=== PATIENT | male | born 1965 | race Caucasian/White ===

== ENCOUNTER → 2018-12-27 14:24 | Outpatient (CLI) | payer OTHER, SELFPAY ==
--- NOTE | 2018-12-27 14:31 | RAD_ITS ---
STUDY: X-RAY - LEFT SHOULDER REASON FOR EXAM: Chronic shoulder pain since fall. TECHNIQUE: 3 view(s) of the shoulder. COMPARISON: None. FINDINGS: Normal glenohumeral articulation. There is no substantial acromioclavicular arthrosis. Normal acromion. Normal humeral head and visualized proximal humerus. The soft tissue structures are unremarkable. Normal visualized pulmonary apex. RAD/Shoulder min 2 Views IMPRESSION: Unremarkable x-ray examination of the left shoulder. Electronically Signed: Vincent Dominguez MD at 13:42 EST Tel , Service support ,
== END ==
LOC: HPRAD 14:26
PROVIDERS: Family Provider Family Medicine; PCP Family Medicine; Referring Provider Physician Assistant; Visit Provider Physician Assistant
DX: M25.512 Pain in left shoulder (principal)
CPT/HCPCS: 73030

== ENCOUNTER → 2019-01-21 15:56 | Outpatient (CLI) | payer OTHER, SELFPAY ==
--- NOTE | 2019-01-21 15:58 | MRI_ITS ---
STUDY: MRI LEFT SHOULDER MRI LEFT SHOULDER: REASON FOR EXAM: Male, 53 years old. Left shoulder pain, decreased range of motion TECHNIQUE: Standardized fat and water weighted pulse sequences were obtained in all 3 orthogonal planes. COMPARISON: None. FINDINGS: There is a superior inferior tear of the supraspinatus tendon. There may be a few fibers still intact. There is increased T2 signal within the infraspinatus tendon without retraction. There is no significant retraction of the supraspinatus tendon. There is a small articular surface defect measuring approximately 7 mm.. There is irregularity of the subscapularis tendon with increased T2 signal along its course. There is edema with fluid along the anterior margin of the glenoid. There is significant AC joint osteoarthrosis with osteophytes of the distal clavicle and adjacent acromial osteophytes with subchondral geodes and small amount of fluid within the AC joint. There are inferior spurs with significant compression on the supraspinatus muscle and tendon. Normal glenohumeral articulation. There may be a small Bankart lesion of the humeral head.. The bicipital tendon is likely intact. There is irregularity and deformity of the anterior superior labrum. . Normal deltoid muscle. Normal trapezius muscle. MRI/Upper Ext Joint Only(Routine) IMPRESSION: Superior-inferior tear of the supraspinatus tendon with possible few fibers still intact, there is no significant retraction. Tendinosis infraspinatus tendon Significant AC joint osteoarthrosis with impingement upon the supraspinatus muscle and tendon Likely ALPSA lesion with likely periosteal sleeve injury, anterior superior labral tear, likely tear of the subscapularis tendon Possible small Bankart lesion of the humeral head Electronically Signed: Woodrow Mejia, at 0:08 EST Tel , Service support ,
== END ==
PROVIDERS: Family Provider Family Medicine; PCP Family Medicine; Referring Provider Physician Assistant; Visit Provider Physician Assistant
DX: M75.122 Complete rotator cuff tear or rupture of left shoulder, not specified as traumatic (principal)
CPT/HCPCS: 73221

== ENCOUNTER → 2019-02-26 15:45 | Outpatient (CLI) | payer OTHER, SELFPAY ==
--- NOTE | 2019-02-26 15:47 | CT_ITS ---
STUDY: CT MAXILLOFACIAL SINUSES REASON FOR EXAM: Male, 53 years old. Chronic sinusitis, fracture and deviated septum. RADIATION DOSAGE (If Supplied By Facility): CTDIvol = ( 33.45 ) mGy, DLP = ( 797.27 ) mGycm TECHNIQUE: The patient was scanned in a multi detector CT scanner. High resolution axial imaging was performed without the administration of intravenous contrast material. Sagittal and coronal images were reconstructed. Individualized dose optimization techniques were used for this CT. COMPARISON: None. FINDINGS: FRONTAL SINUSES: Mildly comparison thickening at the base of the frontal sinuses bilaterally. ETHMOIDAL SINUSES: Mild to moderate multifocal the comparison study of thickening involving the right and left ethmoid sinuses. MAXILLARY SINUSES: Mild bilateral mucoperiosteal thickening, of greater thickness at the bases of the maxillary sinuses. SPHENOIDAL SINUSES: Clear. Leftward bowing and spurring of the nasal septum. Right superior turbinate dillon bullosa. Clear nasal passages. Partial obstruction of the right osteal metal complex. Mastoid air cells and middle ear cavities clear. Craniofacial osseous structures normal. Extra cranial soft tissues including orbital contents exhibit no acute process. A few shotty cervical lymph nodes bilaterally none pathologically enlarged. No acute intracranial process, in limited evaluation. CT/Sinus/Facial Bone IMPRESSION: Chronic paranasal sinus disease. Electronically Signed: Ric Bucio MD at 11:59 EDT Tel , Service support ,
== END ==
LOC: CT 15:46
PROVIDERS: Family Provider Family Medicine; PCP Family Medicine; Referring Provider Otolaryngology; Visit Provider Otolaryngology
DX: J32.9 Chronic sinusitis, unspecified (principal)
CPT/HCPCS: 70486

== ENCOUNTER → 2019-07-04 16:46 | Outpatient (CLI) | payer OTHER, SELFPAY ==
--- NOTE | 2019-07-04 17:00 | EKG12_ITS ---
Test Reason : Blood Pressure : / mmHG Vent. Rate : 083 BPM Atrial Rate : 083 BPM P-R Int : 168 ms QRS Dur : 094 ms QT Int : 356 ms P-R-T Axes : 055 -16 039 degrees QTc Int : 418 ms Normal sinus rhythm Normal ECG Confirmed by ALEXANDER ORTIZ, CHRISTINE ([id number]), society editor DIANNE BEDOLLA ([id number]) on 07/05/2019 9:00:15 AM Referred By: Dragan Angulo Confirmed By:CHRISTINE MUNOZ MD
[2019-07-04 17:15] LABS: Hematocrit 42.6 % (40-54); Hemoglobin 14.6 g/dL (13.0-16.5); Mean Corp Hgb Conc 34.3 g/dL (32-36); Mean Corpuscular Hgb 32.5 pg (27.0-32.0); Mean Corpuscular Volume 94.9 fL (80-94); Mean Platelet Vol. 10.5 fl (6.2-12.0); Platelet Count 163 K/mm3 (150-450); RBC Distribution Width CV 12.8 % (11.6-14.6); RBC Distribution Width SD 43.8 fl (35.1-43.9); Red Blood Count 4.49 M/mm3 (4.6-6.2); White Blood Count 6.6 K/mm3 (4.4-11.0)
[2019-07-04 18:02] LABS: Anion Gap 8 (5-15); BUN 11 mg/dL (7-18); BUN/Creat Ratio 13.3 RATIO (10-20); Calcium,Total 8.9 mg/dL (8.5-10.1); Chloride 103 mmol/L (98-107); Creatinine, Serum 0.82 mg/dL (0.70-1.30); EST Glomerular Filtration Rate 104 mL/min (>60); Est Glom Filt Rate - Afr Amer 125 mL/min (>60); Glucose 120 mg/dL (74-106); Potassium 3.5 mmol/L (3.5-5.1); Sodium Level 139 mmol/L (136-145)
== END ==
LOC: LAB 16:47
PROVIDERS: Family Provider Family Medicine; PCP Family Medicine; Referring Provider Otolaryngology; Visit Provider Otolaryngology
DX: Z98.890 Other specified postprocedural states (principal)
CPT/HCPCS: 36415; 80048; 85027; 93005

== ENCOUNTER → 2019-07-08 15:50 | Outpatient (CLI) | payer OTHER, SELFPAY ==
--- NOTE | 2019-07-08 10:30 | ETH_PTH ---
PATIENT: NEIL JAMIL LOC: [facility] U#:[id number] AGE/SX: 60/M ROOM: RE07/08/[address]: Dr. Dragan Angulo MD : 1965 BED: DIS: SPEC #: [id number] RECD: 07/08/19 15:10 STATUS: JIMBO MICHAEL #: [id number] GINGER: 07/08/19 10:[address]: Dragan Angulo DEPT: SURGICAL PATHOLOGY RECD BY: Ton Drummond ENTERED: 07/09/19 08:57 SP TYPE: ETH TISS OTHR DR: Dr. Devonte Castano MD [facility] Tissues: A - Ethmoid sinus, NOS B - Ethmoid sinus, NOS C - Nasal septum, NOS Procedures: Decalcification bone/plaque Surgery Specimen Level III Surgery Specimen Level IV HEADER OPERATION: Septoplasty, right partial middle turbinectomy; bilateral maxillary antrostomy, bilateral total ethmoidectomy PRE-OP DIAGNOSIS: Nasal congestion; hypertrophy of nasal turbinates; deviated nasal septum; chronic sinusitis TISSUE SUBMITTED: A - Right sinus contents, B - Left sinus contents, C - Septum MICROSCOPIC DIAGNOSIS A. Right sinus contents: Fragments of respiratory mucosa with acute and chronic inflammation, squamous metaplasia and bone. B. Left sinus contents: Fragments of respiratory mucosa with chronic inflammation and bone. C. Septum: Fragments of cartilage and bone, clinically deviated nasal septum. SJ:jam 07/12/19 MICROSCOPIC DESCRIPTION Slides are reviewed. GROSS DESCRIPTION A - Received in fixative is one container labeled with the patient's name and designated right sinus contents. The specimen consists of multiple irregular, foamy and gritty fragments of light to dark frost soft tissue that in aggregate measure 5 x 3 x 0.2 cm. Optical Instrument Assembly Supervisor portions are submitted in two cassettes. B - Received in fixative is one container labeled with the patient's name and designated left sinus contents. The specimen consists of multiple irregular, foamy and gritty fragments of light to dark frost soft tissue that in aggregate measure 2.5 x 1.5 x 0.2 cm. The specimen is submitted in its entirety in one cassette. C - Received in fixative is one container labeled with the patient's name and designated septum. The specimen consists of multiple irregular fragments of light frost bone and cartilage that in aggregate measure 3 x 2.5 x 0.2 cm. The specimen is totally submitted in one cassette after decalcification. / AM:jam 07/09/19 TC:3 CPT: 87783 x2, 44937, 90220
== END ==
PROVIDERS: Family Provider Family Medicine; PCP Family Medicine; Referring Provider Otolaryngology; Visit Provider Otolaryngology
DX: J32.9 Chronic sinusitis, unspecified (principal); J34.2 Deviated nasal septum
CPT/HCPCS: 88304; 88305; 88311

== ENCOUNTER 2019-08-14 06:01 | Day surgery (SDC) | payer OTHER, SELFPAY ==
[2019-08-08 17:28] LABS: International Normalized Ratio 0.9; Partial Thromboplast Time 25.8 Seconds (24.1-36.2); Prothrombin Time (Protime)PT. 12.2 SECONDS (11.7-14.9)
[2019-08-08 18:08] LABS: AST(SGOT) 25 U/L (15-37); Alanine Aminotransfer ALT/SGPT 39 U/L (16-61); Albumin, Serum 3.6 g/dL (3.2-5.0); Alkaline Phosphatase 104 U/L (45-117); Globulin 3.3 g/dL (2.2-4.2); Protein, Total 6.9 g/dL (6.4-8.2)
[2019-08-08 19:00] LABS: Hemoglobin A1c 7.5 % (4.2-6.3)
[2019-08-14] VITALS (7 sets, daily range): BP systolic 133–167; BP diastolic 73–91; PULSE 80–94; RESP 16–20; TEMP 36–37; O2SAT 94–98; BMI 28.3
[2019-08-14 06:35] LABS: Bedside Glucose 229 mg/dL (70-110)
[2019-08-14] MEDS: Lactated Ringers 1,000 ML 100 ML IV ×2 (06:42→10:06)
[2019-08-14] MEDS: Cefazolin 2 GM in 0.9% Normal Saline 100 ML IV (07:27)
--- NOTE | 2019-08-14 07:30 | TESH_PTH ---
PATIENT: NEIL JAMIL LOC: [facility] U#:[id number] AGE/SX: 54/M ROOM: RE08/14/[address]: Dr. Chasity Posey DO : 1965 BED: DIS: 08/14/2019 SPEC #: [id number] RECD: 08/14/19 11:55 STATUS: JIMBO MICHAEL #: [id number] GINGER: 08/14/19 07:[address]: Chasity Posey DEPT: SURGICAL PATHOLOGY RECD BY: Florina Pennington ENTERED: 08/14/19 12:04 SP TYPE: TENDON OTHR DR: Dr. Devonte Castano MD Tissues: Tendon and tendon sheath, NOS Procedures: Surgery Specimen Level III HEADER OPERATION: Shoulder subacromial decompression/acromioplasty PRE-OP DIAGNOSIS: Complete tear of left rotator cuff TISSUE SUBMITTED: Left biceps tendon MICROSCOPIC DIAGNOSIS Left biceps tendon: A piece of dense fibroconnective tissue with reactive changes. AM:jam 08/15/19 MICROSCOPIC DESCRIPTION Slides are reviewed. GROSS DESCRIPTION Received in fixative is one container labeled with the patient's name and designated left biceps tendon. The specimen consists of an elongated fragment of light frost-white tendinous tissue measuring 5 cm in length and 0.8 cm in diameter. The specimen is totally submitted in one cassette. / AM:jam 08/14/19 TC:5 CPT: 97142
--- NOTE | 2019-08-14 07:38 | DCINST_ITS ---
Discharge Diet: No Restrictions - sling at all times unless showering, may remove dressings and get incision wet pod 4, keep incision clean and dry until then, call with concerns Discharge Activity: May Not Drive May shower in (days): 1 Ice area for (Minutes): 20 - Every hour while awake. Weight Bearing Status: Weight bearing as tolerated Keep extremity elevated above heart level: Operative Extremity Call your doctor if your incision/area has: Continuous Slow Oozing, Sudden Increased Bleeding, Increased Pain/ Swelling, Increased Redness, Foul Smelling Discharge Call your doctor if you observe: Fever of 101 or Higher, Coldness, Increased Pain, Numbness or Tingling, Change in Color, Calf discomfort Allergies/Adverse Reactions: Allergies No Known Allergies Allergy (Verified 08/14/19 06:33) Medications to take at Discharge Lansoprazole [Prevacid] 30 mg PO DAILY 03/09/15 Lisinopril/Hydrochlorothiazide [Zestoretic 20/25 Tablet] 1 tab PO DAILY 03/09/15 cyanocobalamin (vitamin B-12) 1,000 mcg capsule 1,000 mcg PO DAILY 07/25/19 magnesium oxide 500 mg capsule 500 mg PO DAILY 07/25/19 metformin 500 mg tablet 500 mg PO DAILY #90 tab 07/25/19 Oxycodone HCl/Acetaminophen [Percocet 5/325] 1 - 2 tablet PO Q6H PRN PRN 5 Days #28 tablet 08/14/19 The following prescriptions were given: Oxycodone HCl/Acetaminophen [Percocet 5/325] 1 - 2 tablet PO Q6H PRN PRN 5 Days #28 tablet PRN Reason: Pain Transmission Status: Sent to [facility] Primary Care Physician: Devonte Castano MD [Primary Care Provider] - Test Results: Test results from this visit will be discussed in further detail at your follow- up appointment, if applicable. Please Follow Up With: Chasity Posey, DO - [phone]
--- NOTE | 2019-08-14 07:39 | OP.PCM_ITS ---
Report of Operation Date of Procedure: 08/14/19 Pre-Operative Diagnosis: left shoulder rotator cuff tear, biceps tendinosis, subacromial impingement, Post-Operative Diagnosis: same Surgery/Procedure Performed:: sals, rotator cuff repair, distal clavicle excision, subacromial decompression, open subpec biceps tenodesis ssis architect: Santino Alvarado Type of Anesthesia:: General/Regional Anesthesiologist: Denton Jack Estimated Blood Loss (mL): minimal Fluids Replaced: 1000ml lr Description of Procedure: Preop note Patient is a 54-year-old male who has left shoulder pain and instability pain with overhead motion and tenderness along his distal clavicle. Risk benefits and alternatives were discussed with patient after an MRI was obtained. Risk benefits and risks include but not not limited to blood loss, blood clot, infection, neurovascular, failure procedure, loss of life and loss of limb. Patient is aware like proceed with left shoulder repair as indicated. Next Operative note Patient seen and examined preop holding area. Left arm was marked. Patient brought to the operating placed supine on the operating table. Signed, anesthesia, antibiotics were administered. Left arm was prepped and draped in usual sterile fashion all bony problems well-padded SCDs placed on his bilateral lower extremity. [place] through beachchair position we did recheck his blood pressure which is stable throughout. We then again prepped and draped the left arm standard technique we marked out our bony landmarks we then insufflated the glenohumeral joint from the posterior aspect had good return. We then created our posterior portal and began a diagnostic arthroscopy. The glenohumeral joint was intact. Anterior portal was created under direct visualization. The subscap was torn off its insertion on the lesser tuberosity and had a capsule attachment as well. We then released the subscap scar tissue. We used a bur at the site of the lesser tuberosity. We then place a push lock anchor after placed into fiber length and the leading edge of the subscap were able to bring it down and we construct his anterior stabilizing forces of the shoulder. The biceps was torn off of the insertion of the labrum this was released with a tenotomy. The rotator cuff was intact. We then moved to the subacromial space. Created a lateral portal under direct visualization. We then resected the hyperemic bursa which was throughout. We then complained the spur type II acromion. We then moved to the AC joint. We then created a trans-AC portal. We then debrided back with a bur first and then with a shaver and then resected about 7 mm from the distal clavicle about 2 from the acromial process. We then coplanar under the undersurface going back to the lateral portal again. We then irrigated the shoulder with copious muscle sterile saline all bleeders were coagulated. We then moved our open biceps tenodesis we created a 2 cm incision just inferior to the insertion of the pack. Dissected down tenotomies of the biceps biceps was brought out of the incision truncated at its appropriate level whipstitched the and and sent the biceps tender to pathology for further evaluation. We then use the put the Arthrex pec button in standard technique drilled unicortical he placed our button after it was placed through the the ends of the whipstitched biceps tendon we then oversewed sewed down to the periosteum with a free needle. We then irrigated the incision with copious muscle sterile saline incision closed with 3-0 Vicryl in a running 4-0 Monocryl the portals were closed with interrupted 4-0 nylon. Sterile dressings were applied. Patient tolerated procedure well no comp occasions [facility] recovery room in stable condition. Postoperative Nonweightbearing left arm Follow-up on Monday for dressing change and brace adjustment Pharmacy has hospital prescriptions Sling Call with increased pain numbness tingling further issues arise This note was generated with Optichron dictation software. It may contain incorrect words, spelling, and punctuation that were not noted in checking the note before signing. [employer] disclaimer
--- NOTE | 2019-08-14 07:40 | PCM.HP.BLA ---
History and Physical I have re-examined the patient. There are no clinical changes since date of exam. Intake Intake Visit Reasons: L. SHOULDER Accompanied by: self Is patient in pain?: Yes Pain scale (1-10): 5 Allergies No Known Allergies Allergy (Verified 11/08/16 11:33) Medications Lansoprazole [Prevacid] 15 mg PO DAILY 03/09/15 [History Confirmed 07/25/19] Lisinopril/Hydrochlorothiazide [Zestoretic 20/25 Tablet] 1 tab PO DAILY 03/09/15 [History Confirmed 07/25/19] cyanocobalamin (vitamin B-12) 1,000 mcg capsule 1,000 mcg PO DAILY 07/25/19 [History Confirmed 07/25/19] magnesium oxide 500 mg capsule 500 mg PO DAILY 07/25/19 [History Confirmed 07/25/19] metformin 500 mg tablet PO #90 tab 07/25/19 [History Confirmed 07/25/19] PFSH Social History (Updated 07/25/19 @ 15:08 by Chasity Posey DO) Smoking Status: Current some day smoker HPI L. SHOULDER: Details: Parts of this documentation were recorded by a scribe, this documentation accurately reflects the service provided and the decisions made by me, Chasity Posey DO 07/25/19 [id number]. NEIL JAMIL is a 53 year old M here today for F/U on left shoulder RTC repair. Patient had sinus surgery 6 weeks ago and was to F/U at this time to discuss left shoulder RTC repair. Denies numbness, tingling or other associated symptoms. Patient continues to have pain over his anterior shoulder. He does c/o left hand cramping occasionally. Does continue to have weakness of the left arm. ROS Const Reports system reviewed and no additional complaints, except as docu Eyes Reports system reviewed and no additional complaints, except as docu ENT Reports system reviewed and no additional complaints, except as docu Card Reports system reviewed and no additional complaints, except as docu Resp Reports system reviewed and no additional complaints, except as docu GI Reports system reviewed and no additional complaints, except as docu Reports system reviewed and no additional complaints, except as docu Musc Reports as per HPI Skin/Breast Reports system reviewed and no additional complaints, except as docu Neuro Yes system reviewed and no additional complaints, except as docu Psych Reports system reviewed and no additional complaints, except as docu Endo Reports system reviewed and no additional complaints, except as docu Raz/Lymph Reports system reviewed and no additional complaints, except as docu Aller/Immun Reports system reviewed and no additional complaints, except as docu no r/r/w no abd pain no audible bruits Ortho Exam Left Shoulder Testing: Yes Hawkin's, Yes TTP Biceps, No Apprehension Test, Yes cross arm SHOULDER: weak ER Assessment & Plan Problems 1. Complete tear of left rotator cuff, unspecified whether traumatic M75.122 Plan Explained that due to his weakness on exam and his recent surgeries are complete we can repair the RTC but he is at risk of re-tear due to the smoking and encouraged quitting. Reviewed the pre-operative plans with the patient. Risks and benefits of the procedure were fully explained, including but not limited to infection, neurovascular injury, continued pain, arthritis, stiffness, need for further surgery, re-injury, DVT, PE, general risks of anesthesia, and loss of limb or life. The patient understands all the risks and does wish to proceed with written consent. Follow up post op or sooner if pain, swelling, numbness or associated symptoms, or concerns develop. All questions answered. Patient in agreement of plan. Coding Level of Care Code Off vis,est,level 4 Diagnoses Complete tear of left rotator cuff, unspecified whether traumatic M75.122 ??Rotator cuff tear extent: complete ??Rotator cuff tear trauma status: unspecified whether traumatic
[2019-08-14] MEDS: Epinephrine (1 mg/ml) 1 MG/ML VIAL (08:00)
[2019-08-14] MEDS: Mupirocin Ointment 22gm Tube 1 APPLIC (09:37)
[2019-08-14 10:16] LABS: Bedside Glucose 208 mg/dL (70-110)
== END 2019-08-14 11:45 | disposition home or self-care (01) ==
LOC: SDC 06:02 → AC 06:02
PROVIDERS: Anesthesiology; Family Provider Family Medicine; PCP Family Medicine; Referring Provider Orthopaedic Surgery; Visit Provider Orthopaedic Surgery
PROC: (CPT 29827; principal; 2019-08-14 07:10)
DX: M75.122 Complete rotator cuff tear or rupture of left shoulder, not specified as traumatic (principal); R53.1 Weakness; E11.9 Type 2 diabetes mellitus without complications; E78.00 Pure hypercholesterolemia, unspecified; F10.20 Alcohol dependence, uncomplicated; Y90.9 Presence of alcohol in blood, level not specified; I10 Essential (primary) hypertension; Z79.84 Long term (current) use of oral hypoglycemic drugs; F17.200 Nicotine dependence, unspecified, uncomplicated
CPT/HCPCS: 01630; 29826; 29827; 29828; 64450; 36415; 80076; 82962; 83036; 85610; 85730; 88304; J7120; J2405

== ENCOUNTER 2019-10-23 16:00 | Outpatient (RCR) | payer OTHER, SELFPAY ==
[2019-08-29 10:13] VITALS: BMI 28.3
--- NOTE | 2019-09-19 13:43 | HP.PTEVAL_ITS ---
Patient's Visit Information NEIL JAMIL is a 54 year old M referred to Physical Therapy by Chasity Posey DO with a diagnosis of L SUBSCAP REPAIR, BICEPS TENODESIS 08/14. Date of Evaluation: 09/19/19 Physical Therapist: Denton Zhang, DPT, OCS, CSCS - Visit Plan Frequency: 1-2x /Week Duration: 2 Months Plan: weekly to progress HEP of AROM to strengthening to return to function ex based on his symptoms. Emphasize precautions and HEP. Next can start isometric or controlled PRE strength if motion near full and pain down. - Subjective Findings: L shoulder surgery 08/14, 5 weeks ago she fixed RC, biceps tenodesis adn cleaned him out. Prior to that was achey pain in arm after falling off a roof last August. Was 09/05 adn could not sleep at night. Since surgery has less pain, not wearing sling alot at home adn hasn't warn it in last couple months. /10 pain in L shoulder if rolls on it wrong adn if uses it when he should not. No pain at rest. 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 Sleep is OK for the most part. Normal unless he rolls on it wrong. Mechanics is a hobby and has not been able to do much of that. Soreness makes him stop. Basic ADLs are pretty normal. No exercises, still supposed to be in sling until novemeb follow up. - Pain L shoulder Pain Intensity (Out of 10): 0 Pain Intensity Range: 0, 5 - Objective Forward head posture adn anterior scapula. Incisions have healed well with slight scarring above biceps incision. No unusual redness heat or swelling. Pt in sling at arrival but admittedly has not been in it much and did not put it on to depart. Moving arm all over the place on his own despite my recommending care with movement. AROM L shoulder 120 flexion with slight end range pain, 120 abd, 68 ext rotation(vs 80 on R) and L3 IR with slight discomfort. Full elbow aROM without pain today in flexiona nd extension B. Strength not tested today in elbow or shoulder but at least 3/5 in all movements. wrist adn thumb strength is 4+ adn withotu pain B. PROM 150 flexion and abd with out much discomfort except end range. reflexes 2/3 bi and tric B. Sensation UE WNL to gross light touch. OVERALL DOING WELL DESPITE NONCOMPLIANCE WITH SLING AND OVERUSE OF L UE. CAUTIONED HIM TODAY REGARDING USING L UE FOR ANYTHING OTHER THAN AROM IN PAINFREE ROM BUT COMPLIANCE WILL BE QUESTIONABLE. ALSO TO BE IN SLING. - Goals Goal 1:: Full AROM without pain to 150 flexion/abduction Goal Time Frame: 4-6 Weeks Goal 2:: Strength tested at 4+/5 without pain to IR and ER and flexion of L shoulder to facilitate appropriate work Goal Time Frame: 8-12 Weeks Goal 3:: Pt I appropriate HEP to get back to normal L shoulder Goal Time Frame: 6-8 Weeks Goal 4:: Pt feel 90% back to normal in L shoulder and have plan to return to full work duty Goal Time Frame: 6-8 Weeks Goal 5:: Score<15 on quick DASH Goal Time Frame: 6-8 Weeks - Rehabilitation Potential Physical Therapy Diagnosis: s/p l subscap repair and biceps tenodesis 08/14 Rehabilitation Potential: Good - Anticipated Interventions Patient/Client Instruction: Educate patient on: Condition, Plan of Care, Risk Factors For the Purpose of:: To increase ROM, To increase tolerance to activity/condition/position, To reduce risk of recurrence Therapeutic Exercise to Include: Strength training, Postural training, Passive ROM, Active ROM Comment: work progression For the Purpose of:: To decrease pain, To increase ROM, To improve muscle performance and motor function, To improve ability of physical actions for home/community/work/leisure Thank you for the opportunity to evaluate your patient. For Medicare and Medicare HMO plans, please review the plan of care and approve it. It will need to be FAXED BACK to us at [phone] for Medicare purposes. For Medicare only, by signing this I certify the plan of care. Please let me know if there are questions or concerns regarding this plan of care. Physician Signature: Date:
--- NOTE | 2019-10-03 16:21 | HP.PTREVAL ---
Chasity Posey, DO, It has been my pleasure to treat NEIL JAMIL over the last 3 visits for L SUBSCAP REPAIR, BICEPS TENODESIS 08/14. Please see the progress note below for an update on the physical therapy plan of care! Subjective: Sore due to going back to work yesterday...lots of repetitive movements. Just sore form extra work, no problems. Doing every other day 3x10. Doctor said he coyuld go back to work despite having to lift 1/2 to 5# objects out in front of him repetitively. Is avoiding some things at work overhead. Does nto feel like shoulder pain is an issue, just getting back to work makes him sore. Objective/Function: AROM is full to 150 flexion adn abduction but painful arc and slow at end range. external and internal rotation full and just some soreness at end range. Plan Plan: no progression this week due to soreness from return to work. I cautioned him that he is really putting more stress through it than I would like but he has to do it and doctor knows about it. Will try to progress band strength next week if soreness has come back down. Goals Goal 1:: Full AROM without pain to 150 flexion/abduction Goal Time Frame: 4-6 Weeks Goal 2:: Strength tested at 4+/5 without pain to IR and ER and flexion of L shoulder to facilitate appropriate work Goal Time Frame: 8-12 Weeks Goal 3:: Pt I appropriate HEP to get back to normal L shoulder Goal Time Frame: 6-8 Weeks Goal 4:: Pt feel 90% back to normal in L shoulder and have plan to return to full work duty Goal Time Frame: 6-8 Weeks Goal 5:: Score<15 on quick DASH Goal Time Frame: 6-8 Weeks Anticipated Interventions Patient/Client Instruction: Educate patient on: Condition, Plan of Care, Risk Factors For the Purpose of:: To increase ROM, To increase tolerance to activity/condition/position, To reduce risk of recurrence Therapeutic Exercise to Include: Strength training, Postural training, Passive ROM, Active ROM Comment: work progression For the Purpose of:: To decrease pain, To increase ROM, To improve muscle performance and motor function, To improve ability of physical actions for home/community/work/leisure Please do not hesitate to contact me at [phone] by phone or if you have questions or concerns regarding this new plan of care! Sincerely, Denton Zhang, DPT, OCS, CSCS
--- NOTE | 2019-12-05 09:41 | HP.PT.NRP ---
HP - Discharge Summary (1) - Patient Information NEIL JAMIL was seen in my office for initial evaluation on 09/19/19. The following Plan of Care was established for this patient: Initial Frequency: 1-2x /Week Initial Duration: 2 Months - Anticipated Interventions Patient/Client Instruction: Educate patient on: Condition, Plan of Care, Risk Factors For the Purpose of:: To increase ROM, To increase tolerance to activity/condition/position, To reduce risk of recurrence Therapeutic Exercise to Include: Strength training, Postural training, Passive ROM, Active ROM For the Purpose of:: To decrease pain, To increase ROM, To improve muscle performance and motor function, To improve ability of physical actions for home/community/work/leisure This patient was last seen in our office 10/23/19. Pertinent comments regarding their Physical therapy will appear below: Pt seen 5 visits for progression of home rehabilitation exercises. This was to continue until back to normal but pateint has neglected to schedule or attend further visits. it should be noted that he was back to work and reportedly doing rather well ahead of where I would expect him to be when I last saw him but not overly compliant with home precautions. At this point I will be discontinuing this patient from physical therapy. I would be happy to see this patient again in the future if found appropriate by the physician. Thank you! Denton Zhang, DPT, OCS, CSCS
== END 2019-10-23 19:00 | disposition home or self-care (01) ==
LOC: PT 16:00
PROVIDERS: Family Provider Family Medicine; PCP Family Medicine; Referring Provider Orthopaedic Surgery; Visit Provider Orthopaedic Surgery
DX: Z47.89 Encounter for other orthopedic aftercare (principal); Z98.890 Other specified postprocedural states
CPT/HCPCS: 97110; 97161; 97530

== ENCOUNTER 2020-08-27 11:04 | Emergency (ER) | payer OTHER, SELFPAY ==
[2019-08-29 10:13] VITALS: BMI 28.3
[2020-08-27 11:05] VITALS: BP 154/84; PULSE 113; RESP 18; TEMP 36.4; O2SAT 97; BMI 29.8
[2020-08-27] MEDS: Ibuprofen 400 MG Tablet 800 MG PO (11:48)
--- NOTE | 2020-08-27 11:50 | RAD_ITS ---
STUDY: X-RAY - RIGHT SHOULDER REASON FOR EXAM: Male, 55 years old. FELL LAST NIGHT ON RIGHT SHOULDER. HX OF SURGERY TO SHOULDER ABOUT 4 YEARS AGO PER PATIENT. TECHNIQUE: 4 view(s) of the shoulder. COMPARISON: None. FINDINGS: Normal glenohumeral articulation. Normal acromioclavicular joint. Normal acromion. Normal humeral head and visualized proximal humerus. Metallic anchors are seen in the humeral head suggestive of prior rotator cuff surgery. The soft tissue structures are unremarkable. Normal visualized pulmonary apex. RAD/Shoulder min 2 Views IMPRESSION: No acute abnormality is seen. Electronically Signed: Van De Los Santos, at 12:05 EDT , Service support ,
--- NOTE | 2020-08-27 12:17 | ED.DCSUM_ITS ---
- ER Visit Summary Date of Service: 08/27/20 Chief Complaint: Right shoulder pain History of Present Illness: The patient is a [address] Checo Eid and Dr. Posey. He is had surgery on both shoulders by Dr. Posey. Reports that yesterday he tripped over his dog cable and injured his right shoulder. Complains of a dull pain is 1010 at worst 9-10 currently. Is worsened by movement relieved by rest. Denies any numbness or weakness. Patient denies any other injuries. No blow to the head or loss of consciousness. No neck, back, wrist, or hip pain. Physical Examination: Vitals: Stable. Afebrile. Neck: No vertebral tenderness. Full ROM without difficulty. Cleared by NEXUS criteria. Back: No vertebral tenderness. General: A&O x 3. NAD. Cardiovascular exam: Regular rate and rhythm, no murmur, rub or gallop. Respiratory exam: Chest nontender. No crepitus. Clear to auscultation bilaterally. No wheezes or stridor. Abdominal exam: Soft, nontender, nondistended, normal bowel sounds. No pain in RUQ or LUQ specifically. No peritoneal signs. Extremity: Moderate tenderness palpation over the right deltoid. No pain over the clavicle. He has decreased range of motion secondary to pain with active greater than passive abduction. He is neuro vas intact distal sensation light touch less than 2-second cap refill. Test Results: Clinical Impression(s) from Imaging Studies Shoulder X-Ray 08/27/20 11:50 IMPRESSION: No acute abnormality is seen. Electronically Signed: Van De Los Santos, at 12:05 EDT , Service support , Emergency Department Course and Treatment: Patient was treated with ibuprofen as he drove here. He was placed in a sling. Treatment Plan: Patient will be discharged with Barnhart. Instructed to follow-up with Dr. Posey in 1 week if not improving. Return to the emergency department for any worsening symptoms. Disposition: To home in improved and stable condition. Impression: 1. Right shoulder pain, acute. This note was generated with [employer] software. It may contain incorrect words, spelling, and punctuation that were not noted in review of the chart prior to signing ED Disposition - Plan for ED Patient: Instructions: ED Shoulder Pain Uncertain Cause Prescriptions: Hydrocodone Bitart/Apap 5-325 [Barnhart 5MG-325MG] 1 tablet PO Q4H PRN PRN 2 Days #10 tablet PRN Reason: Pain Referrals: Chasity Posey DO [STAFF PHYSICIAN] - 1 Week if not improving
[2020-08-27 12:40] VITALS: PULSE 99; RESP 17; O2SAT 96
== END 2020-08-27 12:42 | disposition home or self-care (01) ==
LOC: ED 12:21
PROVIDERS: Emergency Provider Emergency Medicine; PCP Family Medicine
DX: M25.511 Pain in right shoulder (principal); I10 Essential (primary) hypertension; E11.9 Type 2 diabetes mellitus without complications; Z79.84 Long term (current) use of oral hypoglycemic drugs
CPT/HCPCS: 73030; 99283

== ENCOUNTER → 2020-09-10 15:37 | Outpatient (CLI) | payer OTHER, SELFPAY ==
[2020-09-01 14:57] VITALS: BMI 29.8
--- NOTE | 2020-09-10 15:40 | MRI_ITS ---
STUDY: MRI RIGHT SHOULDER REASON FOR EXAM: Male, 55 years old. rt shoulder pain, fall, limited r.o.m TECHNIQUE: Standardized fat and water weighted pulse sequences were obtained in all 3 orthogonal planes. COMPARISON: X-ray 08/27/2020 FINDINGS: Status post rotator cuff repair with multiple anchors within the humeral head. Acute massive rotator cuff tear with full-thickness complete tear of the supraspinatus and infraspinatus and subscapularis tendons retracted to the glenohumeral joint with muscular edema. Associated superior displacement of the humeral head. Normal teres minor tendon. There is mild muscular atrophy of the supraspinatus muscle. There is mild muscular atrophy of the infraspinatus muscle. Normal subscapularis muscle. Normal teres minor muscle. Normal glenohumeral articulation. Normal humeral head and visualized proximal humerus. Normal biceps labral complex. Long head of the biceps tendon is torn and retracted beyond the field of view There is labral degeneration with blunting of the jodi, but there is no demonstrated discrete labral tear. Normal capsulo- ligamentous complex. Normal rotator interval. Normal acromioclavicular articulation. There is a Type II morphology (curved), with a neutral orientation. There is no subacromial-subdeltoid bursal fluid. Normal visualized coracohumeral and coracoacromial ligaments. Normal quadrilateral space. Normal axillary space. Normal deltoid muscle. Normal trapezius muscle. MRI/Upper Ext Joint Only(Routine) IMPRESSION: Status post rotator cuff repair with an acute massive rotator cuff tear with full-thickness complete tears of the supraspinatus, infraspinatus, and subscapularis tendons retracted to the glenohumeral joint. Mild atrophy of the supraspinatus and infraspinatus muscles. Electronically Signed: Ric Holland MD at 12:55 EDT Tel , Service support ,
== END ==
PROVIDERS: PCP Family Medicine; Referring Provider Orthopaedic Surgery; Visit Provider Orthopaedic Surgery
DX: M25.511 Pain in right shoulder (principal)
CPT/HCPCS: 73221

== ENCOUNTER 2020-10-14 07:33 | Day surgery (SDC) | payer OTHER, SELFPAY ==
[2020-09-01 14:57] VITALS: BMI 29.8
--- NOTE | 2020-10-06 15:48 | EKG12_ITS ---
Test Reason : PRE OP Blood Pressure : / mmHG Vent. Rate : 088 BPM Atrial Rate : 088 BPM P-R Int : 166 ms QRS Dur : 086 ms QT Int : 344 ms P-R-T Axes : 025 -17 036 degrees QTc Int : 416 ms Normal sinus rhythm Normal ECG Confirmed by ALEXANDER ORTIZ, CHRISTINE ([id number]), image editor BRENT GUERRA ([id number]) on 10/08/2020 12:51:40 PM Referred By: Chasity Posey Confirmed By:CHRISTINE MUNOZ MD
[2020-10-06 16:24] LABS: Hematocrit 41.6 % (40-54); Mean Corp Hgb Conc 33.7 g/dL (32-36); Mean Corpuscular Hgb 32.3 pg (27.0-32.0); Mean Corpuscular Volume 95.9 fL (80-94); Mean Platelet Vol. 10.5 fl (6.2-12.0); Platelet Count 163 K/mm3 (150-450); RBC Distribution Width CV 11.9 % (11.6-14.6); Red Blood Count 4.34 M/mm3 (4.6-6.2); White Blood Count 6.7 K/mm3 (4.4-11.0)
[2020-10-06 16:41] LABS: International Normalized Ratio 0.9; Partial Thromboplast Time 24.4 Seconds (24.1-36.2); Prothrombin Time (Protime)PT. 11.9 SECONDS (11.7-14.9)
[2020-10-06 16:44] LABS: AST(SGOT) 25 U/L (15-37); Alanine Aminotransfer ALT/SGPT 42 U/L (16-61); Albumin, Serum 3.9 g/dL (3.2-5.0); Alkaline Phosphatase 87 U/L (45-117); Anion Gap 7 (5-15); BUN 13 mg/dL (7-18); BUN/Creat Ratio 14.9 RATIO (10-20); Bilirubin, Direct 0.12 mg/dL (0.00-0.30); Calcium,Total 8.4 mg/dL (8.5-10.1); Chloride 100 mmol/L (98-107); Creatinine, Serum 0.88 mg/dL (0.70-1.30); EST Glomerular Filtration Rate 96 mL/min (>60); Est Glom Filt Rate - Afr Amer 116 mL/min (>60); Globulin 3.5 g/dL (2.2-4.2); Glucose 116 mg/dL (74-106); Potassium 3.6 mmol/L (3.5-5.1); Protein, Total 7.4 g/dL (6.4-8.2); Sodium Level 136 mmol/L (136-145)
[2020-10-06 16:49] LABS: Hemoglobin A1c 7.3 % (3.8-5.6)
[2020-10-14] VITALS (14 sets, daily range): BP systolic 106–190; BP diastolic 74–98; PULSE 58–111; RESP 16; TEMP 36.1–37.2; O2SAT 92–98; BMI 29.2
--- NOTE | 2020-10-14 07:15 | HP_ITS ---
This note was generated with [employer] dictation software. It may contain incorrect words, spelling, and punctuation that were not noted in checking the note before signing. I have re-examined the patient. There are no clinical changes since date of exam. Intake Intake Visit Reasons: RIGHT SHOULDER Allergies No Known Allergies Allergy (Verified 08/27/20 11:07) [facility] Social History (Updated 09/15/20 @ 14:[address] Chasity Posey, ) Smoking Status: Current every day smoker HPI RIGHT SHOULDER: Surgical H&P: Yes Details: Parts of this documentation were recorded by a scribe, this documentation accurately reflects the service provided and the decisions made by me, Dr. Chasity Posey, DO 09/15/20 1320. NEIL JAMIL is a 55 year old M here today for F/U on right shoulder after having MRI complketed and he is also about 1 year post op from left shoulder sals, rotator cuff repair, distal clavicle excision, subacromial decompression, open subpec biceps tenodesis. he complains of popping and clicking with range of motion for his right shoulder. he has decreased shoulder range of motion. patient notes that his pain is affecting his work. Denies numbness, tingling or other associated symptoms. Ortho Exam Right Shoulder Skin/Wound: Yes CDI, No ecchymosis, No erythema, No swelling Testing: Positive Hawkin's, Neer's, Drop Arm, PROM-External Rotation at side 0- 60, PROM-External Rotation at 90 0-60 and PROM-Forward Elevation 0-180; negative AROM-Forward Elevation 0-180, AROM-External Rotation at 90 0-60 or AROM-External Rotation at side 0-60 SHOULDER: no er/ir strength Assessment & Plan Problems 1. Traumatic complete tear of right rotator cuff, subsequent encounter S46.011D Plan PERSONALLY REVIEWED THE PATIENTS SHOULDER MRI. SEE IMAGING REPORT IN CHART FOR FURTHER DETAILS. EDUCATED THE PATIENT ABOUT THE ANATOMY OF THE SHOULDER AND ETIOLOGY OF HIS PAIN. SPOKE WITH HIM ABOUT SURGERY AND THE RISK OF THE PROCEDURE FAILING DUE TO THE PATIENT SMOKING. patient would like to proceed with surgery as soon as possible as it is affecting his job. Reviewed the pre-operative plans with the patient. Risks and benefits of the procedure were fully explained, including but not limited to infection, neurovascular injury, continued pain, arthritis, stiffness, need for further surgery, re-injury, DVT, PE, general risks of anesthesia, and loss of limb or life. The patient understands all the risks and does wish to proceed with written consent. Discussed options for treatment. Discussed possible superior capsular reconstruction due to the nature and long on the chronicity of his previous repair and now the acute on chronic and is retracted. Most hopefully would like to bring his tendon back with his own tissue and if this fails is a secondary surgery to SER but at this point I would like to have the SCR available Intra-Op in case we is to tract to retracted his tendon quality is significantly significant enough to maintain structural integrity of the repair.We discussed the current risk associated COVID-19. While it is understood that there is a community spread of COVID 19 the risk of chivo COVID-19 while at [facility] is very low, however, the risk cannot be completely mitigated because of the community spread of the disease. We discussed in detail the risk of exposure to and or potential harm posed by the COVID-19 virus with having a surgery/procedure at this time versus the risk of delaying the surgery/procedure. Is not possible to know either the risk of delaying the surgery procedure or chance of getting an infection with perfect accuracy, but a joint decision was made to proceed at this time with a schedule surgery/procedure as indicated on the consent form. Patient was notified that we will need to comply with any screening or testing [facility] wishes to perform or that surgery may be delayed for any positive results. Follow up for 2 week post op appt or sooner if pain, swelling, numbness or associated symptoms, or concerns develop. All questions answered. Patient in agreement of plan. Coding Level of Care Code Off vis,est,level 4 Diagnoses Traumatic complete tear of right rotator cuff, subsequent encounter S46.011D ??Encounter type: subsequent encounter ??Rotator cuff tear extent: complete ??Rotator cuff tear trauma status: traumatic COVID (Procedure Consent) Procedure Criteria Procedure Criteria: Yes Elective The surgeon/proceduralist and patient have discussed in detail the risk of exposure to and/or potential harm posed by the COVID-19 virus with having a surgery/procedure at this time versus the risk of? delaying the surgery/procedure. It is not possible to know either the risk of delaying the surgery or procedure or chance of getting an infection with perfect accuracy, but a joint decision was made between the patient and the surgeon/proceduralist ?to proceed at this time with the scheduled surgery/procedure as indicated on the consent form.
[2020-10-14] MEDS: Lactated Ringers 1,000 ML 100 ML IV (07:59)
[2020-10-14 08:06] LABS: Bedside Glucose 244 mg/dL (70-110)
[2020-10-14] MEDS: Cefazolin 2 GM in 0.9% Normal Saline 100 ML IV (09:05)
[2020-10-14] MEDS: Epinephrine (1 mg/ml) 1 MG/ML VIAL (09:44)
[2020-10-14] MEDS: Mupirocin Ointment 22gm Tube 1 APPLIC (12:30)
--- NOTE | 2020-10-14 12:31 | PCM.DC.ORTHO ---
Discharge Diet: No Restrictions - May remove dressings in 5 days and apply Band-Aids to incision sites, may remove sling to do pendulums only, sleeping at night, call with increased pain numbness tingling further issues arise, may get incision wet after 5 days Discharge Activity: May Not Drive May shower in (days): 1 Ice area for (Minutes): 20 - Every hour while awake. Weight Bearing Status: Weight bearing as tolerated Keep extremity elevated above heart level: Operative Extremity Call your doctor if your incision/area has: Continuous Slow Oozing, Sudden Increased Bleeding, Increased Pain/ Swelling, Increased Redness, Foul Smelling Discharge Call your doctor if you observe: Fever of 101 or Higher, Coldness, Increased Pain, Numbness or Tingling, Change in Color, Calf discomfort Allergies/Adverse Reactions: Allergies No Known Allergies Allergy (Verified 10/14/20 07:46) Medications to take at Discharge Lansoprazole [Prevacid] 30 mg PO DAILY 03/09/15 Lisinopril/Hydrochlorothiazide [Zestoretic Tablet] 1 tab PO DAILY 03/09/15 metformin 500 mg tablet 500 mg PO DAILY #90 tab 07/25/19 ascorbate calcium (vitamin C) 500 mg tablet 500 mg PO DAILY 09/01/20 cholecalciferol (vitamin D3) 25 mcg (1,000 unit) capsule 25 mcg PO DAILY 09/01/20 Potassium (Otc) [Potassium Otc] 99 mg PO DAILY 10/05/20 Hydrocodone Bitart/Apap 5-325 [[place] 5MG-325MG] 1 - 2 tab PO Q6H PRN PRN 5 Days #40 tab 10/14/20 Lansoprazole [Prevacid] 60 mg PO DAILY 10/14/20 Zolpidem Tartrate [Ambien (Generic)] 5 mg PO QHS PRN PRN #14 tab 10/14/20 The following prescriptions were given: Zolpidem Tartrate [Ambien (Generic)] 5 mg PO QHS PRN PRN #14 tab PRN Reason: Insomnia Transmission Status: Received by [facility] Hydrocodone Bitart/Apap 5-325 [[place] 5MG-325MG] 1 - 2 tab PO Q6H PRN PRN 5 Days #40 tab PRN Reason: Pain Transmission Status: Received by [facility] Primary Care Physician: Devonte Castano MD [Primary Care Provider] - Test Results: Test results from this visit will be discussed in further detail at your follow-up appointment, if applicable. Please Follow Up With: Chasity Posey, - [phone]
--- NOTE | 2020-10-14 12:32 | PCM.OPRPT ---
Report of Operation Date of Procedure: 10/14/20 Pre-Operative Diagnosis: RIGHT SHOULDER MASSIVE ROTATOR CUFF TEAR, IMPINGMENT SYNDROME Post-Operative Diagnosis: same Surgery/Procedure Performed:: sars, massive rotator cuff-3 tendon- repair, subacromial decompression/acromioplasty snowboard designer: Santino Alvarado Type of Anesthesia:: General/Regional Anesthesiologist: Bud Tang Replaced: 1200cc lr Description of Procedure: Preop note Patient is a 55-year-old male who had been operated on his right shoulder question time ago. Patient having failure of weakness and pain and looks like he is also having a anterior superior escape of the shoulder on physical exam. MRI confirms massive rotator cuff retracted tear with mild atrophy. Risk benefits and alternatives were discussed with patient. Risk include but not limited to blood loss, blood clot, infection, neurovascular, failure of procedure, loss of life and loss of limb. Patient is aware would like proceed with right shoulder arthroscopy repair as indicated. Operative note Patient seen examined preop holding area. Right arm was marked. Patient brought to the operating placed supine on the operating table. Signed, anesthesia, antibiotics were administered. Right arm was prepped and draped in usual sterile technique after placement was placed in beachchair positioning. Please note the assisted through we did recheck his blood pressure which was stable throughout. All bony promises well-padded SCDs placed on his bilateral lower extremity. We marked out our incisions for our standard portal placement. We use our bony landmarks. Timeout was performed. We then insufflated the glenohumeral joint for the posterior aspect and had good return. We then created I then began our diagnostic arthroscopy created posterior portal with 11 blade. Began at vision there was some chondral changes on the anterior aspect of the glenoid. We then created an anterior portal under direct visualization. We then able to probe the subscap which was torn and retracted. We used a combination of shaver and elevator and a burner to release the subscap. Please note that we found good excursion however because it was so adhered medially we did place a fiber length for traction and were able to further release it and get a tensionless repair on the lesser tuberosity. We then debrided back to the lesser tuberosity and placed 2 swivel locks Arthrex after placing about 4 fiber links across the subscap bringing them down to bone we again place a double row construct in the lesser to tuberosity for further fixation. The limited to the sub we noted there is no loose bodies in the inferior aspect. The rotator cuff was obviously torn on a full thickness anterior to superior supraspinatus and infraspinatus tear. We then moved to the subacromial space. There was extensive bursitis throughout as well. Then created a lateral portal and direct visualization. We resected back to extensive bursitis and especially the posterior veil in the anterior lateral limb. We are able then to debride back and visualize our rotator cuff. After placing then debrided back the footprint using combination of a shaver burner and ablator. We then placed 25[address] Arthrex corkscrew's and there were double loaded. Patient sequentially posterior anterior then sewed tied we had great tensionless coverage please note that please prior to that we did release the rotator cuff in order to have a tensionless repair as it was a little adhered posterior medially. After that we did determined that we wanted a lateral row in order to further fixate the and the fact that he is also a smoker and risk for decreased healing we did place 2 swivel locks laterally. We then irrigated coagulate any bleeders that we did find. Sterile dressings were applied after all portals were closed with interrupted 4-0 nylon stitches. Sterile dressings were applied. Patient taught procedure well no complication complication transferred to recovery recovery room where he received a postop PACU block Postoperative note Nonweightbearing right upper extremity Pendulums Call with increased pain numbness tingling further issues arises Patient is in 2 weeks Dragon disclaimer [facility] has prescriptions This note was generated with [employer] dictation software. It may contain incorrect words, spelling, and punctuation that were not noted in checking the note before signing.
[2020-10-14 13:01] LABS: Bedside Glucose 296 mg/dL (70-110)
[2020-10-14 14:40] LABS: Bedside Glucose 296 mg/dL (70-110)
[2020-10-14] MEDS: HYDROcodone Bitartrate/Apap 5/325 Tablet PO (15:44)
== END 2020-10-14 16:36 | disposition home or self-care (01) ==
LOC: SDC 07:36 → AC 07:37
PROVIDERS: Anesthesiology; PCP Family Medicine; Referring Provider Orthopaedic Surgery; Visit Provider Orthopaedic Surgery
PROC: (CPT 29827; principal; 2020-10-14 08:55)
DX: S46.011D Strain of muscle(s) and tendon(s) of the rotator cuff of right shoulder, subsequent encounter (principal); M75.41 Impingement syndrome of right shoulder; F17.200 Nicotine dependence, unspecified, uncomplicated
CPT/HCPCS: 01630; 29826; 29827; 36415; 80048; 80076; 82962; 83036; 85027; 85610; 85730; 87426; 93005; J7120; C1713; J2405

== ENCOUNTER 2021-03-05 10:00 | Outpatient (RCR) | payer OTHER, SELFPAY ==
--- NOTE | 2020-11-03 16:01 | HP.PTEVAL_ITS ---
Patient's Visit Information NEIL JAMIL is a 55 year old M referred to Physical Therapy by Dr. Chasity Posey DO with a diagnosis of MASSIVE RIGHT 3 TENDON RTC REPAIR. Date of Evaluation: 11/03/20 Physical Therapist: Nikolai Tovar PT, Cert MDT, OCS - Visit Plan Frequency: 2x /Week Duration: 3 Months Plan: S/P MASSIVE RTC REPAIR 3 TENDONS N112/14/19. SEE RTC GUIDELINES FOR PROGRESSION WITH SUBSACPULARIS REPAIR. NO ER PAST 30 DEGREES ,NO CROSS BODY A DDUCTION,NO ACTIVE IR AND IR BEHIND BACK. NO SUPPORT OF BODY WT ON RIGHT SHOULDER. INTIALLY PROM GENTLE FLEXION AND ER 30 DEGREES ,CP/MHP ,MANUALTHERAPY - Subjective This 55 y/o male presnets to physical therapy with massive right 3 tendon RTC repair. Patient had RTC repair of subscapularis ,infraspinatous and supraspinatous subacromial decompression/acromioplasty on 10/14/[address] Nichols d/c same day with sling. Patient seen Dr Ortega last week 10/27. Okay to start PT gentle PROM and sling on 8 weeks. Patient intially injuried right fell at home on right shoulder had immediate . Patient had MRI in AUG then scheduled for surgery.Plan to see DR tran. Patient denies parathesia/tingling. Patient has difficulty sleeping at night. MEDS hydrocodine.Patient has difficultly with all ADLS' ,housework and self hygine. Patient surgery affects QOL.patient has h/o right shoulder surgery bicep tendon surgery. SOCIAL: . VOCATION: [employer] - Pain Right Shoulder Pain Intensity (Out of 10): 4 Pain Intensity Range: 10 - Objective POSTURE: mild foward posture,sling intact. INSCION: well approximate. NEURO: denies parathesia/tingling. PALPATION: global tenderness. PROM: shoulder supine flexion 75 degree,ER 20 degrees guarding with pain ,elbow/ wrist WFL - Goals Goal 1:: Patient to be I with HEP per guidelines RTC. Goal Time Frame: 12-16 Weeks Goal 2:: Patient to decrease right shoulder pain by 75% or> to improve function Goal Time Frame: 4-6 Weeks Goal 3:: Patient improve PROM shoulder flexion 140 degrees and scaption and ER 30 degrees Goal Time Frame: 6-8 Weeks Goal 4:: Patient to increase strength of RTC 4-/5 ,except supraspinatous 3+ /5,deltoid 3+/5 to improve funcrion with ADLS' Goal Time Frame: 12-16 Weeks Goal 5:: Patient to increase AROM shoulder flexion 145 degrees,abd 140 degrees in scaptaion and ,IR/ER WFL sor ADLS' Goal Time Frame: 12-16 Weeks Goal 6:: Patient to increase quick dash by 10 points or > to improve QOL and f unction. Goal Time Frame: 12-16 Weeks - Rehabilitation Potential Physical Therapy Diagnosis: This patient underwent s/p RTC repair of ryao praspinatous,subscapularis,infraspinatous along with subacromial decompression.acriomioplasty with pain poor ROM,weakness impairs elf hygine ,housework tasks and RTW thus will benifit from skilled PT Rehabilitation Potential: Good - Anticipated Interventions Patient/Client Instruction: Educate patient on: Condition, Plan of Care For the Purpose of:: To decrease pain, To decrease swelling/inflammation, To increase ROM, To improve muscle performance and motor function, To increase tolerance to activity/condition/position, To improve performance and independence with ADL's, To improve ability of physical actions for home/community/work/leisure, To improve health of tissue, To decrease soft tissue restriction, To increase flexibility/ROM, To assume or resume ADL's, To improve ability to perform tasks related to life management, To improve tolerance to ADL's Therapeutic Exercise to Include: Strength training, Postural training, Flexibilty training, Passive ROM, Active ROM Comment: SEE GUIDELINES FOR PROGRESSION For the Purpose of:: To decrease pain, To increase ROM, To improve muscle performance and motor function, To improve ability to perform ADL's, To improve performance and independence with ADL's, To improve ability of physical actions for home/community/work/leisure, To improve health of tissue, To decrease soft tissue restriction, To increase flexibility/ROM, To assume or resume ADL's, To improve ability to perform tasks related to life management, To improve tolerance to ADL's Manual Therapy Techniques to Include: Mobilization, Passive ROM Comment: SHOULDER For the Purpose of:: To decrease pain, To increase ROM, To improve nutrient delivery to tissue, To increase oxygenation perfusion, To improve health of tissue, To decrease soft tissue restriction, To increase flexibility/ROM TENS: Yes IF ES: Yes Cryotherapy (ice pack, ice massage): Yes Thermo therapy (hot pack): Yes For the Purpose of:: To decrease pain, To decrease swelling/inflammation, To increase ROM, To improve nutrient delivery to tissue, To increase oxygenation perfusion, To improve health of tissue, To decrease soft tissue restriction Thank you for the opportunity to evaluate your patient. For Medicare and Medicare HMO plans, please review the plan of care and approve it. It will need to be FAXED BACK to us at [phone] for Medicare purposes. For Medicare only, by signing this I certify the plan of care. Please let me know if there are questions or concerns regarding this plan of care. Physician Signature: Date:
--- NOTE | 2021-04-21 09:51 | HP.PTDCNRP_ITS ---
NEIL JAMIL was seen in my office for initial evaluation on 11/03/20. The following Plan of Care was established for this patient: Initial Frequency: 2x /Week Initial Duration: 3 Months Patient/Client Instruction: Educate patient on: Condition, Plan of Care For the Purpose of:: To decrease pain, To decrease swelling/inflammation, To increase ROM, To improve muscle performance and motor function, To increase tolerance to activity/condition/position, To improve performance and independence with ADL's, To improve ability of physical actions for home/community/work/leisure, To improve health of tissue, To decrease soft tissue restriction, To increase flexibility/ROM, To assume or resume ADL's, To improve ability to perform tasks related to life management, To improve tolerance to ADL's Therapeutic Exercise to Include: Strength training, Postural training, Flexibilty training, Passive ROM, Active ROM For the Purpose of:: To decrease pain, To increase ROM, To improve muscle performance and motor function, To improve ability to perform ADL's, To improve performance and independence with ADL's, To improve ability of physical actions for home/community/work/leisure, To improve health of tissue, To decrease soft tissue restriction, To increase flexibility/ROM, To assume or resume ADL's, To improve ability to perform tasks related to life management, To improve tolerance to ADL's Manual Therapy Techniques to Include: Mobilization, Passive ROM Comment: SHOULDER For the Purpose of:: To decrease pain, To increase ROM, To improve nutrient de livery to tissue, To increase oxygenation perfusion, To improve health of tissue, To decrease soft tissue restriction, To increase flexibility/ROM TENS: Yes IF ES: Yes Cryotherapy (ice pack, ice massage): Yes Thermo therapy (hot pack): Yes For the Purpose of:: To decrease pain, To decrease swelling/inflammation, To increase ROM, To improve nutrient delivery to tissue, To increase oxygenation perfusion, To improve health of tissue, To decrease soft tissue restriction This patient was last seen in our office . Pertinent comments regarding their Physical therapy will appear below: Patient seen for massisve RTC repair initiated phases of 1-2-3 with strength but recovery was slow and cont to have weakness. At this point I will be discontinuing this patient from physical therapy. I would be happy to see this patient again in the future if found appropriate by the physician. Thank you! Nikolai Tovar, PT, Cert MDT, OCS
== END 2021-03-05 19:00 | disposition home or self-care (01) ==
LOC: PT 10:00
PROVIDERS: PCP Family Medicine; Referring Provider Orthopaedic Surgery; Visit Provider Orthopaedic Surgery
DX: Z98.890 Other specified postprocedural states (principal)
CPT/HCPCS: 97110; 97140; 97162; 97530